=== PATIENT | male | born 2000 | race African-American/Black ===

== ENCOUNTER 2020-05-09 16:52 | Outpatient (CLI) | payer OTHER, SELFPAY ==
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
== END 2020-05-09 16:53 | disposition home or self-care (01) ==
PROVIDERS: PCP Internal Medicine; Visit Provider Physical Medicine & Rehabilitation Pain Medicine
DX: S22.9 Fracture of bony thorax, part unspecified (principal); X58.XXXA Exposure to other specified factors, initial encounter; M51.36 Other intervertebral disc degeneration, lumbar region; M41.9 Scoliosis, unspecified
CPT/HCPCS: 72072; 72100; 72128; 72131

== ENCOUNTER 2020-10-22 11:55 | Emergency (ER) | payer OTHER, SELFPAY ==
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
[2020-10-22 12:06] VITALS: BP 142/76; PULSE 82; RESP 18; TEMP 36.8; O2SAT 100
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
[2020-10-22 12:50] VITALS: BP 123/73; PULSE 68; RESP 16; TEMP 36.1; O2SAT 100
--- NOTE | 2020-10-22 12:55 | PC.NURSE ---
Patient will self cath after return from CT.
[2020-10-22 13:05] LABS: Basophils Absolute Auto 0.1 K/mm3 (0.0-0.1); Eosinophils Absolute Auto 0.3 K/mm3 (0-0.3); Eosinophils Percent Auto 4.3 % (0-4.4); Hematocrit 42.7 % (42.0-52.0); Hemoglobin 14.2 g/dL (14.0-18.0); Immature Granulocyte Absolute 0.01 K/mm3 (0.00-0.031); Immature Granulocyte Percent A 0.2 % (0-0.5); Lymphocytes Absolute Auto 2.83 K/mm3 (0.9-3.2); Lymphocytes Percent Auto 48.6 % (18.3-44.2); Mean Corpuscular HGB Conc 33.3 g/dl (32-36); Mean Corpuscular Hemoglobin 28.1 pg (26-34); Mean Corpuscular Volume 84.4 fl (80-100); Mean Platelet Volume 11.4 fl (7.4-10.4); Monocytes Absolute Auto 0.3 K/mm3 (0.1-0.6); Monocytes Percent Auto 5.8 % (2.6-8.5); Neutrophils Absolute Auto 2.3 K/mm3 (1.3-6.7); Neutrophils Percent Auto 40.1 % (45.5-73.1); Platelet Count Result 165 k/mm3 (150-375); Red Blood Count 5.06 M/mm3 (4.6-6.20); Red Cell Distribution Width 14.1 % (11.5-14.5); White Blood Count 5.8 K/mm3 (4.5-10.0)
[2020-10-22 13:17] LABS: Alanine Aminotransferase 11 U/L (4-50); Albumin Level 4.5 g/dL (3.5-5.1); Alkaline Phosphatase 81 U/L (38-126); Anion Gap 6 mmol/L (8-16); Aspartate Amino Transferase 21 U/L (17-59); Bilirubin,Total 0.5 mg/dL (0.2-1.3); Blood Urea Nitrogen 12 mg/dL (9-20); Calcium 10.2 mg/dL (8.4-10.2); Carbon Dioxide 30 mmol/L (22-30); Chloride 106 mmol/L (98-107); Estimated CRCL calculation 135 ml/min; Estimated Glomerular Filt Rate > 60; Glucose 98 mg/dL (75-110); Lipase 52 U/L (23-300); Potassium 4.1 mmol/L (3.4-5.0); Sodium 142 mmol/L (137-145)
[2020-10-22 14:01] VITALS: BP 125/75; PULSE 75; RESP 17; TEMP 36.7; O2SAT 100
[2020-10-22 14:34] LABS: Add Urine Microscopic? YES; Appearance Urine Cloudy (Clear); Bacteria Urine Trace /hpf; Bilirubin Urine Negative (Negative); Blood Urine Negative (Negative); Color Urine Yellow (Yellow); Glucose Urine UA Negative (Negative); Ketones Urine Negative (Negative); Leukocyte Esterase Ur 2+ LEU/UL (Negative); Mucus Urine Moderate /lpf; Nitrate Urine Positive (Negative); Protein Urine Negative (Negative); Specific Grav Ur 1.045 (1.001-1.035); Squamous Epithelial Cell Urine Rare /hpf (Few); Urobilinogen Urine Negative mg/dL (<2.0); WBC Urine 31-50 /hpf
--- NOTE | 2020-10-22 14:40 | PC.NURSE ---
Patient self-cathed for urine
[2020-10-22] MEDS: SODIUM CHLORIDE 0.9% IV 1,000 ML 999 ML IV CONT (14:55)
[2020-10-22 14:58] VITALS: BP 126/85; PULSE 84; RESP 18; TEMP 36.4; O2SAT 100
== END 2020-10-22 15:51 | disposition home or self-care (01) ==
PROVIDERS: Physician Assistant; Emergency Provider Emergency Medicine; PCP Internal Medicine
DX: N10 Acute pyelonephritis (principal); M89.9 Disorder of bone, unspecified; G82.20 Paraplegia, unspecified; T14.8XXS Other injury of unspecified body region, sequela; W34.00XS Accidental discharge from unspecified firearms or gun, sequela; F17.290 Nicotine dependence, other tobacco product, uncomplicated; H40.9 Unspecified glaucoma
CPT/HCPCS: 36415; 74177; 80053; 81001; 83690; 85025; 87077; 87086; 87088; 87186; 96365; 99284; J0696; J7030; Q9967

== ENCOUNTER 2020-11-25 09:51 | Emergency (ER) | payer OTHER, SELFPAY ==
[2020-11-25 09:47] VITALS: PULSE 82; RESP 17; TEMP 36.2; O2SAT 98
[2020-11-25 09:52] VITALS: BP 148/98
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
[2020-11-25] MEDS: KETOROLAC 15 MG/ML VIAL (*BKC) IV PUSH (10:09)
[2020-11-25 10:25] LABS: Alanine Aminotransferase 11 U/L (4-50); Albumin Level 4.6 g/dL (3.5-5.1); Alkaline Phosphatase 86 U/L (38-126); Anion Gap 7 mmol/L (8-16); Aspartate Amino Transferase 20 U/L (17-59); Bilirubin,Total 0.5 mg/dL (0.2-1.3); Blood Urea Nitrogen 13 mg/dL (9-20); Calcium 10.1 mg/dL (8.4-10.2); Carbon Dioxide 30 mmol/L (22-30); Chloride 103 mmol/L (98-107); Estimated CRCL calculation 105 ml/min; Estimated Glomerular Filt Rate > 60; Glucose 97 mg/dL (75-110); Lipase 168 U/L (23-300); Potassium 3.9 mmol/L (3.4-5.0); Sodium 140 mmol/L (137-145)
[2020-11-25 10:49] LABS: Basophils Absolute Auto 0.1 K/mm3 (0.0-0.1); Basophils Percent Auto 0.7 % (0.2-1.2); Eosinophils Absolute Auto 0.4 K/mm3 (0-0.3); Eosinophils Percent Auto 5.3 % (0-4.4); Hematocrit 42.6 % (42.0-52.0); Immature Granulocyte Absolute 0.01 K/mm3 (0.00-0.031); Immature Granulocyte Percent A 0.1 % (0-0.5); Lymphocytes Absolute Auto 4.01 K/mm3 (0.9-3.2); Lymphocytes Percent Auto 48.4 % (18.3-44.2); Mean Corpuscular HGB Conc 32.9 g/dl (32-36); Mean Corpuscular Hemoglobin 27.6 pg (26-34); Mean Platelet Volume 11.4 fl (7.4-10.4); Monocytes Absolute Auto 0.4 K/mm3 (0.1-0.6); Monocytes Percent Auto 4.7 % (2.6-8.5); Neutrophils Absolute Auto 3.4 K/mm3 (1.3-6.7); Neutrophils Percent Auto 40.8 % (45.5-73.1); Platelet Count Result 184 k/mm3 (150-375); Red Blood Count 5.07 M/mm3 (4.6-6.20); Red Cell Distribution Width 13.6 % (11.5-14.5); White Blood Count 8.3 K/mm3 (4.5-10.0)
[2020-11-25] MEDS: SODIUM CHLORIDE 0.9% IV 1,000 ML 999 ML IV CONT (11:36)
[2020-11-25 11:39] LABS: Add Urine Microscopic? YES; Appearance Urine Cloudy (Clear); Bacteria Urine 1+ /hpf; Bilirubin Urine Negative (Negative); Blood Urine 3+ (Negative); Color Urine Yellow (Yellow); Glucose Urine UA Negative (Negative); Ketones Urine Negative (Negative); Leukocyte Esterase Ur 2+ LEU/UL (Negative); Mucus Urine Few /lpf; Nitrate Urine Positive (Negative); Protein Urine 2+ mg/dL (Negative); RBC Urine >75 /hpf (0-2); Squamous Epithelial Cell Urine Few /hpf (Few); Urobilinogen Urine Negative mg/dL (<2.0); WBC Urine 31-50 /hpf
[2020-11-25 12:25] VITALS: BP 139/78; PULSE 82; RESP 16; O2SAT 98
== END 2020-11-25 13:05 | disposition home or self-care (01) ==
PROVIDERS: Emergency Provider Emergency Medicine; PCP Internal Medicine
DX: N39.0 Urinary tract infection, site not specified (principal); G82.20 Paraplegia, unspecified; S24.104S Unspecified injury at T11-T12 level of thoracic spinal cord, sequela; H40.9 Unspecified glaucoma; W34.00XS Accidental discharge from unspecified firearms or gun, sequela
CPT/HCPCS: 36415; 80053; 81001; 83690; 85025; 87077; 87086; 87088; 87186; 96361; 96374; 96375; 99284; J0696; J1885; J7030

== ENCOUNTER 2021-01-20 11:44 | Emergency (ER) | payer OTHER, SELFPAY | END 2021-01-20 12:17 | disposition left against medical advice (07) | PROVIDERS: Emergency Provider Registered Nurse; PCP Internal Medicine | DX: Z53.21 Procedure and treatment not carried out due to patient leaving prior to being seen by health care provider (principal) | CPT/HCPCS: 99199 ==

== ENCOUNTER 2021-01-20 12:31 | Emergency (ER) | payer OTHER, SELFPAY ==
[2021-01-20 12:33] VITALS: BP 144/71; PULSE 68; RESP 18; TEMP 36.6; O2SAT 100
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
== END 2021-01-20 13:55 | disposition home or self-care (01) ==
PROVIDERS: Emergency Provider Emergency Medicine; PCP Internal Medicine
DX: L84 Corns and callosities (principal); H40.9 Unspecified glaucoma; G82.20 Paraplegia, unspecified; S24.109S Unspecified injury at unspecified level of thoracic spinal cord, sequela; F17.290 Nicotine dependence, other tobacco product, uncomplicated; X58.XXXS Exposure to other specified factors, sequela
CPT/HCPCS: 99282

== ENCOUNTER 2021-08-15 12:30 | Outpatient (RCR) | payer OTHER, SELFPAY ==
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
== END 2021-08-15 16:51 | disposition home or self-care (01) ==
LOC: ANHPT 12:30
PROVIDERS: PCP Internal Medicine; Visit Provider Internal Medicine
DX: M54.5 Low back pain (principal); G82.20 Paraplegia, unspecified; G89.29 Other chronic pain
CPT/HCPCS: 97110; 97113; 97162; 97530; 97542

== ENCOUNTER 2021-08-22 16:38 | Outpatient (NON) | payer OTHER, SELFPAY ==
[2021-08-22 18:44] LABS: Add Urine Microscopic? YES; Appearance Urine Cloudy (Clear); Bacteria Urine 4+ /hpf; Bilirubin Urine Negative (Negative); Blood Urine 3+ (Negative); Color Urine Amber (Yellow); Glucose Urine UA Negative (Negative); Ketones Urine Negative (Negative); Leukocyte Esterase Ur 1+ LEU/UL (Negative); Mucus Urine Heavy /lpf; Nitrate Urine Negative (Negative); Protein Urine 2+ mg/dL (Negative); RBC Urine >75 /hpf (0-2); Specific Grav Ur 1.023 (1.001-1.035); Urobilinogen Urine Negative mg/dL (<2.0); WBC Urine >75 /hpf
== END 2021-08-22 16:39 | disposition home or self-care (01) ==
LOC: ANHLAB 16:40
PROVIDERS: PCP Internal Medicine; Visit Provider Clinical Nurse Specialist
DX: R39.9 Unspecified symptoms and signs involving the genitourinary system (principal)
CPT/HCPCS: 81001; 87077; 87086; 87088; 87186

== ENCOUNTER 2021-09-24 21:15 | Emergency (ER) | payer OTHER, SELFPAY ==
[2021-09-24 21:17] VITALS: BP 137/67; PULSE 77; RESP 16; TEMP 36.4; O2SAT 98
--- NOTE | 2021-09-25 00:38 | PC.NURSE ---
triaged pt left without seeing provider at this time.
== END 2021-09-25 04:15 | disposition left against medical advice (07) ==
LOC: ANHED 09-25 00:46
PROVIDERS: PCP Internal Medicine
DX: R10.9 Unspecified abdominal pain (principal)
CPT/HCPCS: 99199

== ENCOUNTER 2022-01-08 15:40 | Outpatient (NON) | payer OTHER, SELFPAY ==
[2022-01-08 16:18] LABS: Add Urine Microscopic? YES; Appearance Urine Cloudy (Clear); Bilirubin Urine Negative (Negative); Blood Urine Negative (Negative); Color Urine Yellow (Yellow); Glucose Urine UA Negative (Negative); Ketones Urine Negative (Negative); Leukocyte Esterase Ur Negative LEU/UL (Negative); Mucus Urine Few /lpf; Nitrate Urine Negative (Negative); Protein Urine Negative (Negative); RBC Urine 0-2 /hpf (0-2); Specific Grav Ur 1.026 (1.001-1.035); Squamous Epithelial Cell Urine Occasional /hpf (Few); Urobilinogen Urine Negative mg/dL (<2.0); WBC Urine 0-3 /hpf
== END 2022-01-08 15:41 | disposition home or self-care (01) ==
LOC: ANHLAB 15:41
PROVIDERS: PCP Internal Medicine; Visit Provider Internal Medicine
DX: N39.0 Urinary tract infection, site not specified (principal)
CPT/HCPCS: 81001

== ENCOUNTER 2022-03-04 10:24 | Emergency (ER) | payer OTHER, SELFPAY ==
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
[2022-03-04 10:40] VITALS: BP 100/61; PULSE 71; RESP 18; TEMP 36.1; O2SAT 100
[2022-03-04 11:13] LABS: Basophils Absolute Auto 0.1 K/mm3 (0.0-0.1); Basophils Percent Auto 0.9 % (0.2-1.2); Eosinophils Absolute Auto 0.4 K/mm3 (0-0.3); Eosinophils Percent Auto 4.7 % (0-4.4); Hematocrit 43.1 % (42.0-52.0); Hemoglobin 14.3 g/dL (14.0-18.0); Lymphocytes Absolute Auto 3.39 K/mm3 (0.9-3.2); Lymphocytes Percent Auto 43.4 % (18.3-44.2); Mean Corpuscular HGB Conc 33.2 g/dl (32-36); Mean Corpuscular Hemoglobin 27.6 pg (26-34); Mean Corpuscular Volume 83.2 fl (80-100); Mean Platelet Volume 10.5 fl (7.4-10.4); Monocytes Absolute Auto 0.4 K/mm3 (0.1-0.6); Monocytes Percent Auto 5.4 % (2.6-8.5); Neutrophils Absolute Auto 3.6 K/mm3 (1.3-6.7); Neutrophils Percent Auto 45.6 % (45.5-73.1); Platelet Count Result 182 k/mm3 (150-375); Red Blood Count 5.18 M/mm3 (4.6-6.20); Red Cell Distribution Width 13.7 % (11.5-14.5); White Blood Count 7.8 K/mm3 (4.5-10.0)
--- NOTE | 2022-03-04 11:13 | PC.NURSE ---
Pt states he does not have the urge to cath at this time.
[2022-03-04 11:23] LABS: Alanine Aminotransferase 13 U/L (6-50); Albumin Level 4.8 g/dL (3.5-5.1); Alkaline Phosphatase 94 U/L (38-126); Anion Gap 7 mmol/L (8-16); Aspartate Amino Transferase 23 U/L (17-59); Bilirubin,Total 0.1 mg/dL (0.2-1.3); Blood Urea Nitrogen 18 mg/dL (9-20); Carbon Dioxide 26 mmol/L (22-30); Chloride 105 mmol/L (98-107); Estimated CRCL calculation 101 ml/min; Estimated Glomerular Filt Rate > 60; Glucose 92 mg/dL (65-110); Lipase 314 U/L (23-300); Potassium 4.4 mmol/L (3.4-5.0); Sodium 138 mmol/L (137-145)
[2022-03-04 11:47] LABS: Appearance Urine Cloudy (Clear); Bilirubin Urine Negative (Negative); Blood Urine 2+ (Negative); Color Urine Yellow (Yellow); Glucose Urine UA Negative (Negative); Ketones Urine Negative (Negative); Leukocyte Esterase Ur 2+ LEU/UL (Negative); Nitrate Urine Positive (Negative); Protein Urine 2+ mg/dL (Negative); Specific Grav Ur >= 1.030 (1.001-1.035); Urobilinogen Urine 0.2 mg/dL (<2.0)
[2022-03-04 11:54] LABS: Add Urine Microscopic? YES; Bacteria Urine 1+ /hpf; Mucus Urine Few /lpf; RBC Urine >75 /hpf (0-2); Squamous Epithelial Cell Urine Few /hpf (Few); WBC Clumps Urine Present /HPF; WBC Urine >75 /hpf
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
[2022-03-04 13:19] VITALS: BP 113/78; PULSE 77; RESP 16; O2SAT 98
== END 2022-03-04 13:20 | disposition home or self-care (01) ==
PROVIDERS: Emergency Provider Emergency Medicine; PCP Internal Medicine
DX: N39.0 Urinary tract infection, site not specified (principal); G82.20 Paraplegia, unspecified; T14.8XXS Other injury of unspecified body region, sequela; H40.9 Unspecified glaucoma; W34.00XS Accidental discharge from unspecified firearms or gun, sequela
CPT/HCPCS: 36415; 51701; 74176; 80053; 81001; 83690; 85025; 87077; 87086; 87186; 96365; 99284; J0696

== ENCOUNTER 2023-06-04 14:20 | Outpatient (CLI) | payer OTHER, SELFPAY ==
[2023-06-04 18:44] LABS: Basophils Absolute Auto 0.1 K/mm3 (0.0-0.1); Basophils Percent Auto 0.8 % (0.2-1.2); Eosinophils Absolute Auto 0.2 K/mm3 (0-0.3); Eosinophils Percent Auto 2.9 % (0-4.4); Hematocrit 43.1 % (42.0-52.0); Hemoglobin 13.7 g/dL (14.0-18.0); Immature Granulocyte Absolute 0.02 K/mm3 (0.00-0.031); Immature Granulocyte Percent A 0.3 % (0-0.5); Lymphocytes Absolute Auto 3.29 K/mm3 (0.9-3.2); Lymphocytes Percent Auto 41.1 % (18.3-44.2); Mean Corpuscular HGB Conc 31.8 g/dl (32-36); Mean Corpuscular Volume 88.1 fl (80-100); Monocytes Absolute Auto 0.5 K/mm3 (0.1-0.6); Monocytes Percent Auto 5.6 % (2.6-8.5); Neutrophils Percent Auto 49.3 % (45.5-73.1); Platelet Count Result 169 k/mm3 (150-375); Red Blood Count 4.89 M/mm3 (4.6-6.20); Red Cell Distribution Width 13.8 % (11.5-14.5)
[2023-06-04 19:24] LABS: Alanine Aminotransferase 19 U/L (6-50); Albumin Level 4.2 g/dL (3.5-5.1); Alkaline Phosphatase 62 U/L (38-126); Anion Gap 6 mmol/L (8-16); Aspartate Amino Transferase 40 U/L (17-59); Bilirubin,Total 0.4 mg/dL (0.2-1.3); Blood Urea Nitrogen 13 mg/dL (9-20); Calcium 8.9 mg/dL (8.4-10.2); Carbon Dioxide 28 mmol/L (22-30); Chloride 106 mmol/L (98-107); Estimated Glomerular Filt Rate > 60; Glucose 90 mg/dL (65-110); Sodium 140 mmol/L (137-145)
== END 2023-06-04 14:21 | disposition home or self-care (01) ==
LOC: ANHGOSHLAB 14:21
PROVIDERS: PCP Internal Medicine; Visit Provider Nurse Practitioner
DX: Z13.29 Encounter for screening for other suspected endocrine disorder (principal)
CPT/HCPCS: 36415; 80053; 85025

== ENCOUNTER 2023-09-28 14:11 | Emergency (ER) | payer OTHER, SELFPAY ==
[2023-09-28 14:15] VITALS: BP 140/61; PULSE 64; RESP 15; TEMP 36.6; O2SAT 98
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
== END 2023-09-28 17:02 | disposition home or self-care (01) ==
PROVIDERS: Emergency Provider Nurse Practitioner; PCP Internal Medicine
DX: L89.311 Pressure ulcer of right buttock, stage 1 (principal)
CPT/HCPCS: 99283

== ENCOUNTER 2025-06-09 09:41 | Outpatient (RCR) | payer OTHER, SELFPAY ==
--- NOTE | 2025-06-09 11:09 | OTOPEVDC ---
Assessment and note entered by Brad Cordero, OTR/L, CHT Thank you for referring Abhijit Siddiqui to [facility].? An evaluation has been completed. No further treatment is needed. Assessment Status Evaluation Diagnosis Paraplegia Subjective Information Patient referred to our clinic for seating/ mobility evaluation. His current mobility system is 5+ years old and worn. Please refer to scanned 12 page evaluation for details. Assessment OT Clinical Summary To is unable to safety and independently complete functional mobility and mobility related ADLs without the use of a manual w/c due to deficits with severely limited/absent LE strength due to dx of paraplegia. Patient has been using a manual wheelchair for 5+ years and he presents to the clinic with a chair in disrepair. His frame is worn, the left brake is missing, the right front ricardo does not touch the ground, and the chair is at risk for tipping backwards due to the wear and tear. The patient demonstrates independence with pressure relief, transfers, and self propulsion in the wheelchair. He is safe and independent with his mobility with the manual, light weight chair. He requires the custom ability of the adjustable axle to position the wheels optimally. He also requires the light weight chair to be able to lift into his car or truck. He is unable to use an optimally fitted cane or walker due to 0/5 muscle strength in his LEs. The use of this updated equipment will greatly influence greater safety and independence for this patient and his ADLs, transfers, and mobility. Plan of Care OT Services Indicated No Treatment Frequency and No further treatment indicated. Evaluation only. Duration
== END 2025-06-09 15:04 | disposition home or self-care (01) ==
LOC: ANHOT 09:41
PROVIDERS: PCP Internal Medicine; Visit Provider Nurse Practitioner
DX: G82.20 Paraplegia, unspecified (principal)
CPT/HCPCS: 97167